=== PATIENT | female | born 1930 | race Two or more races ===

== ENCOUNTER 2020-12-11 08:56 | Inpatient (IN) | payer OTHER ==
[~2020-12-11] VITALS: Ht 149.9 cm; Wt 63.5 kg
[2020-12-11] MEDS ORDERED: GLIPIZIDE ER2.5 MG (09:11)
[2020-12-11] MEDS ORDERED: VALSARTAN-HCTZ1 EAC3 (09:13)
[2020-12-11] MEDS ORDERED: LIPITOR20 MG (09:13)
[2020-12-11] MEDS ORDERED: TRAJENTA (09:15)
[2020-12-14] MEDS ORDERED: TRADJENTA5 MG (15:57)
== END 2020-12-18 20:07 | disposition home or self-care (01) | DRG 689 ==
LOC: ER 08:56 → MEDJ 18:43
PROVIDERS: ADMIT Internal Medicine; ATTEND Internal Medicine
PROC: 3E0F7GC Introduction of Other Therapeutic Substance into Respiratory Tract, Via Natural or Artificial Opening (ICD-10-PCS; principal; 2020-12-11)
PROC: 3E0F7SF Introduction of Other Gas into Respiratory Tract, Via Natural or Artificial Opening (ICD-10-PCS; 2020-12-11)
PROC: 4A033R1 Measurement of Arterial Saturation, Peripheral, Percutaneous Approach (ICD-10-PCS; 2020-12-11)
PROC: 30233N1 Transfusion of Nonautologous Red Blood Cells into Peripheral Vein, Percutaneous Approach (ICD-10-PCS; 2020-12-15)
DX: N39.0 Urinary tract infection, site not specified (principal); J18.9 Pneumonia, unspecified organism; B96.20 Unspecified Escherichia coli [E. coli] as the cause of diseases classified elsewhere; B95.1 Streptococcus, group B, as the cause of diseases classified elsewhere; E86.0 Dehydration; E87.6 Hypokalemia; E88.09 Other disorders of plasma-protein metabolism, not elsewhere classified; E78.5 Hyperlipidemia, unspecified; E11.65 Type 2 diabetes mellitus with hyperglycemia; D69.49 Other primary thrombocytopenia; I13.10 Hypertensive heart and chronic kidney disease without heart failure, with stage 1 through stage 4 chronic kidney disease, or unspecified chronic kidney disease; N18.9 Chronic kidney disease, unspecified; D63.1 Anemia in chronic kidney disease; Z79.4 Long term (current) use of insulin; Z20.822 Contact with and (suspected) exposure to COVID-19